=== PATIENT | male | born 1995 | race Caucasian/White ===

== ENCOUNTER 2019-11-07 08:00 | Emergency (ER) | payer OTHER ==
--- NOTE | 2019-11-07 10:30 | RADIOLOGY REPORT (SQ) ---
EXAM DESCRIPTION: L SPINE WHOLE IMAGES COMPLETED DATE/TIME: 11/07/2019 9:52 am REASON FOR STUDY: injury/pain COMPARISON: None. NUMBER OF VIEWS: Five views including obliques. TECHNIQUE: AP, lateral, oblique, and sacral radiographic images acquired of the lumbar spine. LIMITATIONS: None. FINDINGS: MINERALIZATION: Normal. SEGMENTATION: Normal. No transitional anatomy. ALIGNMENT: Normal. VERTEBRAE: Maintained height. No fracture or worrisome bone lesion. DISCS: Preserved height. No significant osteophytes or end plate irregularity. POSTERIOR ELEMENTS: Pedicles and facets are intact. No pars defect or posterior arch defects. HARDWARE: None in the spine. PARASPINAL SOFT TISSUES: Normal. PELVIS: Intact as visualized. No fractures or worrisome bone lesions. SI joints intact. OTHER: No other significant finding. IMPRESSION: NORMAL 5 VIEW LUMBAR SPINE. TECHNICAL DOCUMENTATION: JOB ID: [id number] 2010 [employer]- All Rights Reserved Reading location - IP/workstation name: [email or web address]
[2019-11-07] MEDS ORDERED: KETOROLAC TROMETHAMINE 60 MG/2 ML SDV IM ONE (11:29)
--- NOTE | 2019-11-07 11:34 | ER Document Report ---
ED Neck/Back Problem - General Chief Complaint: Back Pain Stated Complaint: BACK PAIN Time Seen by Provider: 11/07/19 11:29 Primary Care Provider: JOHNNY VILCHIS MD [ACTIVE STAFF] - Follow up as needed Mode of Arrival: Ambulatory Information source: Patient, Relative Notes: Patient is a 22-year-old male comes emergency room complaining of lower and upper back pain. Patient states he has been lifting heavy boxes because moving into a new house and last night when he went to bed he was okay when he woke up this morning he could hardly turn over because of the discomfort. Denies any other known traumatic injury states only been a lifting type of a problem. Denies any other medical problems. - HPI Patient complains to provider of: Pain, Upper back, Lower back Onset: Yesterday Where: Home Onset: Gradual Timing: Constant, Still present Quality of pain: Achy, Cramping, Sharp Severity: Moderate Pain Level: 3 Context: Lifting Recent injury: No Associated symptoms: None Exacerbated by: Movement of neck, Movement of trunk Relieved by: Nothing Similar symptoms previously: No Recently seen / treated by doctor: No - Related Data Allergies/Adverse Reactions: No Known Allergies Allergy (Verified 11/07/19 08:39) Past Medical History - General Information source: Patient - Social History Smoking Status: Never Smoker Chew tobacco use (# tins/day): Yes Smoking Education Provided: No Frequency of alcohol use: None Drug Abuse: None Lives with: Family Family History: Reviewed & Not Pertinent Review of Systems - Review of Systems Constitutional: No symptoms reported EENT: No symptoms reported Cardiovascular: No symptoms reported Respiratory: No symptoms reported Gastrointestinal: No symptoms reported Genitourinary: No symptoms reported Male Genitourinary: No symptoms reported Musculoskeletal: See HPI, Back pain, Muscle pain Skin: No symptoms reported Hematologic/Lymphatic: No symptoms reported Neurological/Psychological: No symptoms reported -: Yes All other systems reviewed and negative Physical Exam - Vital signs Vitals: Temp Pulse Resp BP Pulse Ox 97.7 F 70 16 140/77 H 100 11/07/19 08:05 11/07/19 08:05 11/07/19 08:05 11/07/19 08:05 11/07/19 08:05 Interpretation: Hypertensive - Notes Notes: PHYSICAL EXAMINATION: GENERAL: Patient is a well-nourished well-developed 24-year-old male who is in no apparent distress but is very uncomfortable on examination. HEAD: Atraumatic, normocephalic. EYES: Pupils equal round and reactive to light, extraocular movements intact, sclera anicteric, conjunctiva are normal. ENT: Nares patent, oropharynx clear without exudates. Moist mucous membranes. NECK: Normal range of motion, supple without lymphadenopathy LUNGS: Breath sounds clear to auscultation bilaterally and equal. No wheezes rales or rhonchi. HEART: Regular rate and rhythm without murmurs ABDOMEN: Soft, nontender, nondistended abdomen. No guarding, no rebound. No masses appreciated. Musculoskeletal: Examination of patient's area concern is his mid thoracic area where patient is tender in the upper trapezius to palpation. Mild tenderness palpation along the thoracic spine but not directly on the spine itself but off to bilateral sides. There are knots felt along the scapular borders bilaterally. Examination of the lower back shows some mild tenderness to palpation patient displays good sensation of the lower extremities with equal sensation from the inner ankles to the groin as he does from the outer ankles to the hips. No sign of saddle paresthesia. There is no sign of foot drop. No cauda equina sign. Patient displays good bilateral DTRs in the lower extremities. He has good sensation in the upper extremities as well. 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 He has good strength in the upper extremities against resistance. NEUROLOGICAL: . . Normal sensory, motor exams PSYCH: Normal mood, normal affect. SKIN: Warm, Dry, normal turgor, no rashes or lesions noted. Course - Vital Signs Vital signs: Temp Pulse Resp BP Pulse Ox 97.9 F 71 16 124/68 100 11/07/19 11:39 11/07/19 11:39 11/07/19 11:39 11/07/19 11:39 11/07/19 11:39 Discharge - Discharge Clinical Impression: Back muscle spasm Condition: Stable Disposition: HOME, SELF-CARE Instructions: Ice Packs ([facility]), Muscle Strain ([facility]) Additional Instructions: Home and rest. Ibuprofen 600 800 mg 3 times a day along with Tylenol thousand milligrams 3 times a day he can take those together. Also muscle relaxers for pain and discomfort. Light stretching to the area starting tonight. No heavy lifting for the next couple of days. Return to ER feeling concerns or problems. Prescriptions: Methocarbamol [Robaxin 750 mg Tablet] 750 mg PO TID PRN #21 tablet PRN Reason: Forms: Elevated Blood Pressure, Return to Work Referrals: JOHNNY VILCHIS MD [ACTIVE STAFF] - Follow up as needed
[2019-11-07 11:40] VITALS: BP 124/68
== END 2019-11-07 11:39 | disposition home or self-care (01) ==
LOC: ER 08:00
DX: M62.830 Muscle spasm of back (principal); M54.9 Dorsalgia, unspecified; M54.6 Pain in thoracic spine; M54.5 Low back pain; X50.0XXA Overexertion from strenuous movement or load, initial encounter
CPT/HCPCS: 99284; 96372; 72110; J1885